=== PATIENT | female | born 1960 | race Caucasian/White ===

== ENCOUNTER 2017-10-05 07:06 | Outpatient (CLI) | payer MEDICARE, MEDICAID ==
[2017-10-04 08:54] VITALS: BMI 52.4
[2017-10-05] MEDS ORDERED: Diazepam 5 MG TAB ONE (07:53)
[2017-10-05 08:31] VITALS: BP 158/84; TEMP 97.5
--- NOTE | 2017-10-05 11:10 | RAD ---
CERVICAL SPINE MYELOGRAM THORACIC SPINE MYELOGRAM: FLUOROSCOPY DATA: 0.3 minutes 108 mGy per M2. PROCEDURE: After informed consent had been obtained, the patient was escorted to the interventional suite and pl aced on the procedural table. [employer] imaging was performed. The patient was placed into a prone posi tion. Skin on the low back was then prepped and draped in the standard sterile fashion and topical a nd regional soft tissue anesthesia was achieved with 1% lidocaine and sodium bicarbonate. An L3 righ t interlaminar approach was selected, and a 20 gauge needle was uneventfully advanced into the thecal sac with clear color CSF. Subsequently, 10 cc Isovue was instilled into the thecal sac under real t janay fluoroscopy. Appropriate opacification of thecal sac demonstrated with [facility]. The needle was then removed from the patient. The patient tolerated the procedure well and was then transferred to CT to undergo subsequent myelogram. Reference separate report for full lemuel ls. FINIDNGS: Contrast occupies the thecal sac. IMPRESSION: Technically successful cervical and thoracic lumbar spine myelogram as detailed above. POS: [facility]
[2017-10-05] MEDS ORDERED: Iopamidol-M 300 61% 15 ML VIAL ONE (11:22)
--- NOTE | 2017-10-06 07:20 | CT ---
CT CERVICAL SPINE MYELOGRAM: CT CERVICAL SPINE WITH CONTRAST: CLINICAL HISTORY: Cervical spondylosis. Neck pain. FINDINGS: There is osseous fusion spanning the C4 and C5 segments, with osseous incorporation of the red devil dis k space. There is a mild osteophyte ridge at the C4-C5 level. There is mild degenerative hypertroph y at the atlantodental articulation. No significant C1-C2 level central canal stenosis. C2-C3: There is a mild broad-based osteophyte. Uncinate process hypertrophy is present. There is n o significant central canal stenosis. Mild narrowing of the left neural foramen. The right neural f oramen is patent. C3-C4: Disk osteophyte complex with mild narrowing in the central canal. There is uncinate process hypertrophy with minimal narrowing of the left neural foramen. No high grade right foraminal narrowi ng. C4-C5: No significant compromise of the central canal and neural foramina. C5-C6: Disk osteophyte results in mild narrowing of the central canal and mild ventral cord effaceme nt. There is mild bilateral neural foraminal narrowing. C6-C7: There is a disk osteophyte complex with mild narrowing of the central canal. Uncinate proces s hypertrophy is present with mild narrowing of the bilateral neural foramina. C7-T1: No significant compromise of the central canal or neural foramina. There is mild kyphosis of the cervical spine centered about the site of operative fusion. Multilevel degenerative change of the bilateral facet joints is present, and there is osseous fusion of the rig ht C4-C5 facet joints. IMPRESSION: Postoperative cervical spine with multilevel degenerative change, as outlined above. POS: [facility]
--- NOTE | 2017-10-06 07:30 | CT ---
CT THORACIC SPINE WITH CONTRAST: CT THORACIC SPINE MYELOGRAM: CLINICAL HISTORY: Thoracic pain. FINDINGS: Thoracic spine vertebral body heights are preserved. There is multilevel endplate degenerative fermin e with mild disk space narrowing and marginal osteophyte formation. There is no evidence of signific ant central canal stenosis of the thoracic spine. No high grade compromise of the thoracic spine lesa ral foramina. The thoracic spinal cord reveals no evidence of an intrinsic expansile lesion, maintai bob appropriate caliber. The imaged pulmonary parenchyma is free from consolidation. IMPRESSION: There are scattered mild degenerative changes throughout the thoracic spine without significant cord compromise or high grade central canal stenosis. POS: [facility]
== END 2017-10-05 10:40 | disposition home or self-care (01) ==
LOC: RAD 07:06
PROVIDERS: ATTEND Neurological Surgery
DX: M47.892 Other spondylosis, cervical region (principal); M54.6 Pain in thoracic spine; M47.894 Other spondylosis, thoracic region; Z98.890 Other specified postprocedural states
CPT/HCPCS: 62305; 72126; 72129

== ENCOUNTER 2017-10-05 15:03 | Outpatient (CLI) | payer MEDICARE, MEDICAID ==
--- NOTE | 2017-10-05 15:55 | RAD ---
FOUR VIEWS LEFT KNEE: Indication: Bilateral knee pain. FINDINGS: There is moderate osteoarthrosis of the left knee predominately affecting the medial femoral tibial a nd patellofemoral compartment. No acute fracture or subluxation is evident. Enthesopathic changes are identified. There is mild joint capsular distention. IMPRESSION: Moderate left knee osteoarthrosis with mild joint capsular distention. POS: [facility]
--- NOTE | 2017-10-05 16:01 | RAD ---
RIGHT KNEE FOUR VIEWS: History: Right knee pain. Fall. FINDINGS: Mild joint space narrowing of the medial compartment. Moderate tricompartmental osteophytosis. Slight cortical remodeling of the articular surface of the medial femoral condyle. Fluid distention of the suprapatellar bursa on the lateral view. No acute fracture or dislocation are apparent. IMPRESSION: Joint fluid may reflect an effusion from osteoarthritic changes or hemarthrosis in the setting of int ernal derangement. No acute osseous abnormalities are demonstrated. POS: [facility]
== END 2017-10-05 15:04 | disposition home or self-care (01) ==
LOC: TBSIIMAG 15:03
PROVIDERS: ATTEND Neurological Surgery
DX: M25.569 Pain in unspecified knee (principal); M17.12 Unilateral primary osteoarthritis, left knee; M25.862 Other specified joint disorders, left knee

== ENCOUNTER 2017-10-07 20:54 | Day surgery (SDC) | payer MEDICARE, OTHER | END 2017-10-07 22:10 | disposition home or self-care (01) | LOC: SDC/OP 20:54 | PROVIDERS: ATTEND Neurological Surgery | PROC: 3E0S3GC Introduction of Other Therapeutic Substance into Epidural Space, Percutaneous Approach (ICD-10-PCS; principal; 2017-10-07) | DX: G97.1 Other reaction to spinal and lumbar puncture (principal) ==